=== PATIENT | male | born 1980 | race Two or more races ===

== ENCOUNTER 2019-12-31 12:58 | Inpatient (IN) | payer OTHER ==
[~2019-12-31] VITALS: Ht 167.6 cm; Wt 99.8 kg
[2019-12-31] MEDS ORDERED: Metoclopramide 10mg/2ml Inj IVP ONE (13:00)
[2019-12-31] MEDS ORDERED: DiphenhydrAMINE 50mg/ml Inj IVP ONE (13:00)
[2019-12-31] MEDS ORDERED: LORazepam Inj 2mg/ml 1ml IV ONE ×2 (13:00→14:45)
--- NOTE | 2019-12-31 13:07 | NUR ---
ED Nurse Note: Pt BIBA from work d/t episode of nausea started 15 mins ago. Pt stated he feels nauseous right now, noted pt sweating. Pt denies any past medical history. Pt is AOx4, VSS, on RA. Per technical assoc's report, pt is (-) for orthostatic hypotension. Placed on bed and gown; hooked to telemetry monitor. Co-worker at bedside. Acchucheck done with 139mg/dl.
--- NOTE | 2019-12-31 13:09 | Emergency Room Report ---
History of Present Illness General Chief Complaint: Nausea Source: Patient Present Illness HPI Patient presents with acute onset of dizziness and vomiting. He was at work when this began. He denies any headache or tinnitus. He never had this happen before. He denies chest pain, palpitations. No recent travel. No recent medications. No family history of strokes or aneurysms. No history of diabetes. No fevers, chills, sore throat, chest pain, palpitations, diarrhea, dysuria, abdominal pain, shortness of breath, joint pain, rashes, depression. 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 Reviewed Nursing Documentation: PMH: Agreed; PSxH: Agreed Nursing Documentation-PMH Past Medical History: No Stated History Review of Systems All Other Systems: negative except mentioned in HPI Physical Exam Vital Signs Date Time Temp Pulse Resp B/P (MAP) Pulse Ox O2 Delivery O2 Flow Rate FiO2 12/31/19 12:53 97.9 70 16 132/83 (99) 98 Room Air Sp02 EP Interpretation: reviewed, normal General Appearance: alert, GCS 15, non-toxic, mild distress - Vomiting and the eyes closed Head: normocephalic, atraumatic Eyes: bilateral eye PERRL, bilateral eye abnormal EOM - Slow to left fast to right ENT: normal pharynx, moist mucus membranes Neck: full range of motion, supple Respiratory: lungs clear, normal breath sounds Cardiovascular #1: regular rate, rhythm, no edema Cardiovascular #2: 2+ radial (R) Gastrointestinal: normal inspection, non tender, no mass, non-distended, decreased bowel sounds Genitourinary: no CVA tenderness Musculoskeletal: back normal, normal range of motion, no calf tenderness Neurologic: alert, motor strength/tone normal, DTRs symmetric, oriented x3, sensory intact, speech normal, nystagmus Psychiatric: anxious Skin: no rash, warm/dry Medical Decision Making Diagnostic Impression: Primary Impression: Intractable vomiting Qualified Codes: R11.2 - Nausea with vomiting, unspecified Additional Impressions: Labyrinthitis Qualified Codes: H83.02 - Labyrinthitis, left ear Hypokalemia Vertigo ER Course Patient presents with dizziness and vomiting. Differential includes labyrinthitis, vestibular neuritis, Mnire's disease, food poisoning amongst others. The fact that the patient has significant symptoms with nystagmus suggest of peripheral origin as opposed to central. CT the head is not indicated at this time. Patient evaluated with EKG and labs. Treated with Reglan, Benadryl and Ativan. EKG no injury. Labs with normal white count. Sed rate normal. Potassium slightly low. Patient still nauseated. Zofran, solu-medrol given. Patient still vomiting. Observation requested. CT head ordered. Ativan repeated. CT without focal findings. Some improvement but still nauseated and unable to stand on her own. Laboratory Tests Test 12/31/19 13:06 12/31/19 14:50 White Blood Count 9.2 K/UL (4.8-10.8) Red Blood Count 5.72 M/UL (4.70-6.10) Hemoglobin 16.6 G/DL (14.2-18.0) Hematocrit 48.2 % (42.0-52.0) Mean Corpuscular Volume 84 FL (80-99) Mean Corpuscular Hemoglobin 29.0 PG (27.0-31.0) Mean Corpuscular Hemoglobin Concent 34.4 G/DL (32.0-36.0) Red Cell Distribution Width 11.4 % (11.6-14.8) L Platelet Count 195 K/UL (150-450) Mean Platelet Volume 10.7 FL (6.5-10.1) H Neutrophils (%) (Auto) 49.6 % (45.0-75.0) Lymphocytes (%) (Auto) 38.8 % (20.0-45.0) Monocytes (%) (Auto) 8.5 % (1.0-10.0) Eosinophils (%) (Auto) 1.6 % (0.0-3.0) Basophils (%) (Auto) 1.4 % (0.0-2.0) Erythrocyte Sedimentation Rate 1 MM/HR (0-15) Prothrombin Time 11.0 SEC (9.30-11.50) Prothrombin Time INR 1.0 (0.9-1.1) Activated Partial Thromboplast Time 23 SEC (23-33) Sodium Level 142 MMOL/L (136-145) Potassium Level 3.4 MMOL/L (3.5-5.1) L Chloride Level 104 MMOL/L (98-107) Carbon Dioxide Level 22 MMOL/L (21-32) Anion Gap 16 mmol/L (5-15) H Blood Urea Nitrogen 13 mg/dL (7-18) Creatinine 0.9 MG/DL (0.55-1.30) Estimate Glomerular Filtration Rate > 60 mL/min (>60) Glucose Level 138 MG/DL (74-106) H Calcium Level 9.2 MG/DL (8.5-10.1) Total Bilirubin 0.4 MG/DL (0.2-1.0) Aspartate Amino Transferase (AST) 22 U/L (15-37) Alanine Aminotransferase (ALT) 37 U/L (12-78) Alkaline Phosphatase 88 U/L (46-116) Troponin I 0.000 ng/mL (0.000-0.056) Total Protein 7.6 G/DL (6.4-8.2) Albumin 4.1 G/DL (3.4-5.0) Globulin 3.5 g/dL Albumin/Globulin Ratio 1.2 (1.0-2.7) Lipase 122 U/L (73-393) Urine Color Yellow Urine Appearance Clear Urine pH 6 (4.5-8.0) Urine Specific [place] 1.020 (1.005-1.035) Urine Protein Negative (NEGATIVE) Urine Glucose (UA) Negative (NEGATIVE) Urine Ketones Negative (NEGATIVE) Urine Blood Negative (NEGATIVE) Urine Nitrite Negative (NEGATIVE) Urine Bilirubin Negative (NEGATIVE) Urine Urobilinogen Normal MG/DL (0.0-1.0) Urine Leukocyte Esterase Negative (NEGATIVE) Urine Opiates Screen Negative (NEGATIVE) Urine Barbiturates Screen Negative (NEGATIVE) Phencyclidine (PCP) Screen Negative (NEGATIVE) Urine Amphetamines Screen Negative (NEGATIVE) Urine Benzodiazepines Screen Negative (NEGATIVE) Urine Cocaine Screen Negative (NEGATIVE) Urine Marijuana (THC) Screen Negative (NEGATIVE) EKG Diagnostic Results Rate: normal Rhythm: NSR ST Segments: no acute changes - Sinus arrhythmia Rhythm Strip Diag. Results EP Interpretation: yes Rhythm: NSR, no PVC's, no ectopy CT/MRI/US Diagnostic Results CT/MRI/US Diagnostic Results : Imaging Test Ordered: Head Impression No bleeds or mass-effect -no mastoid fluid Last Vital Signs Date Time Temp Pulse Resp B/P (MAP) Pulse Ox O2 Delivery O2 Flow Rate FiO2 12/31/19 21:00 82 18 96 Room Air 21 12/31/19 17:00 98.1 132/82 (99) Status: improved Disposition: PLACE IN OBSERVATION Condition: Serious Michele Apodaca MD Dec 31, 2019 13:09
[2019-12-31 13:10] VITALS: BP_SYST 114; BP_SYST 132; BP_DIAS 83; BP_DIAS 89
[2019-12-31 13:30] LABS: BASOPHILS % (AUTO) 1.4 % (0.0-2.0); EOSINOPHILS % (AUTO) 1.6 % (0.0-3.0); HEMATOCRIT 48.2 % (42.0-52.0); HEMOGLOBIN 16.6 G/DL (14.2-18.0); LYMPHOCYTES % (AUTO) 38.8 % (20.0-45.0); MEAN CORPUSCULAR VOLUME 84 FL (80-99); MONOCYTES % (AUTO) 8.5 % (1.0-10.0); NEUTROPHILS % (AUTO) 49.6 % (45.0-75.0); PLATELET COUNT 195 K/UL (150-450); RED BLOOD COUNT 5.72 M/UL (4.70-6.10); RED CELL DISTRIBUTION WIDTH 11.4 % (11.6-14.8); WHITE BLOOD COUNT 9.2 K/UL (4.8-10.8)
[2019-12-31 13:39] LABS: ANION GAP 16 mmol/L (5-15); BLOOD UREA NITROGEN 13 mg/dL (7-18); CALCIUM 9.2 MG/DL (8.5-10.1); CARBON DIOXIDE 22 MMOL/L (21-32); CHLORIDE 104 MMOL/L (98-107); CREATININE 0.9 MG/DL (0.55-1.30); POTASSIUM 3.4 MMOL/L (3.5-5.1); SODIUM 142 MMOL/L (136-145)
[2019-12-31 13:43] LABS: ALANINE AMINOTRANSFERASE 37 U/L (12-78); ALBUMIN 4.1 G/DL (3.4-5.0); ALBUMIN/GLOBULIN RATIO 1.2 (1.0-2.7); ALKALINE PHOSPHATASE 88 U/L (46-116); ASPARTATE AMINO TRANSFERASE 22 U/L (15-37); BILIRUBIN,TOTAL 0.4 MG/DL (0.2-1.0)
[2019-12-31] MEDS ORDERED: Solu-MEDROL 125mg Inj IVP ONE (14:15)
[2019-12-31 15:15] VITALS: BP 135/74
[2019-12-31 15:42] LABS: APPEARANCE,URINE CLEAR; BILIRUBIN, URINE NEGATIVE (NEGATIVE); GLUCOSE, URINE (UA) NEGATIVE (NEGATIVE); KETONES,URINE NEGATIVE (NEGATIVE); LEUKOCYTE ESTERASE ,URINE NEGATIVE (NEGATIVE); NITRITE,URINE NEGATIVE (NEGATIVE); PH,URINE 6 (4.5-8.0); PROTEIN,URINE NEGATIVE (NEGATIVE); UROBILINOGEN,URINE NORMAL MG/DL (0.0-1.0)
[2019-12-31 15:43] LABS: COLOR,URINE YELLOW
--- NOTE | 2019-12-31 16:00 | Diagnostic Imaging Report ---
Indication: Headache Technique: Contiguous 5 mm thick transaxial imaging of the head obtained in a Siemens Sensation [address] scanner. Soft tissue and bone windows generated. Automatic Exposure Control was utilized. Total Dose length Product (DLP): 1072.2mGycm CT Dose Index Volume (CTDIvol): 53.4 mGy Comparison: none Findings: The size and configuration of the cortical sulci, basal cisterns, and ventricles are within normal limits for age. There is no mass effect, midline shift, or edema identified. There is no evidence of acute hemorrhage or abnormal intra-axial or extra-axial fluid collections. The bones and soft tissues are unremarkable. Impression: No mass effect, edema or acute bleed. The CT scanner at [facility] is accredited by the [place] [employer] and the scans are performed using dose optimization techniques as appropriate to a performed exam including Automatic Exposure control.
--- NOTE | 2019-12-31 16:15 | NUR ---
TRANSFER TO FLOOR: Patient transferred to [facility] as ordered, per Dr. Vera. Report given to Sehlton BARRON. Belongings and medications given to receiving nurse. Family and or S/O informed of transfer.
--- NOTE | 2019-12-31 16:35 | NUR ---
NURSE NOTES: Anu BARRON brought patient by dewayne in stable condition. Alert and oriented x4. No complain of pain or distress. No N/V at this time. IV dressing intact and dry. Belonging checked. Bed lowest position. Call light within reach. Will continue to monitor.
[2019-12-31 17:00] VITALS: BP 132/82
[2019-12-31] MEDS ORDERED: Albuterol/Ipratropium 3ml neb HHN PRN (17:08)
[2019-12-31] MEDS ORDERED: Morphine Sulfate 2mg/ml Inj(IV/IM USE ONLY) IVP PRN (17:09)
[2019-12-31] MEDS ORDERED: DiphenhydrAMINE 25mg Tab ORAL PRN (17:09)
[2019-12-31] MEDS ORDERED: Metoclopramide 10mg/2ml Inj IVP PRN (17:10)
--- NOTE | 2019-12-31 17:40 | History and Physical ---
History of Present Illness General Date patient seen: Dec 31, 2019 Time patient seen: 17:00 Reason for Hospitalization: Nausea Present Illness HPI 39 year old male with no PMHx, presenting with acute onset of vertigo, nausea, vomiting that started at ~10AM this morning while at work meeting. Was in normal state of health leading up to it. Denies any abdominal pain, bowel habit changes, chest pain, SOB, fever, chills. Has vomited twice since, and multiple bouts of heaving. Was not able to eat anything, but now feeling a little hungry. Allergies: Coded Allergies: PENICILLINS (Verified Allergy, Unknown, 12/31/19) Patient History Healthcare decision maker N Resuscitation status Full Code Advanced Directive on File Review of Systems Constitutional: Denies: no symptoms, see HPI, chills, sweats, fever, malaise, weakness, other Eye: Denies: no symptoms, see HPI, eye pain, blurred vision, tearing, double vision, nose pain, nose congestion, acuity changes, discharge, other ENT: Denies: no symptoms, see HPI, ear pain, ear discharge, nose pain, nose congestion, throat pain, throat swelling, mouth pain, hearing loss, nasal discharge, other Respiratory: Denies: no symptoms, see HPI, cough, orthopnea, shortness of breath, stridor, wheezing, CHOI, sputum, other Cardiovascular: Denies: no symptoms, see HPI, chest pain, edema, palpitations, syncope, PND, other Gastrointestinal: Reports: nausea, vomiting Genitourinary: Denies: no symptoms, see HPI, discharge, dysuria, frequency, hematuria, pain, retention, incontinence, urgency, vag bleed/dc, other Musculoskeletal: Denies: no symptoms, see HPI, back pain, gout, joint pain, joint swelling, muscle pain, muscle stiffness, other Skin: Denies: no symptoms, see HPI, rash, change in color, change in hair/nails , dryness, lesions, other Psychiatric: Denies: no symptoms, see HPI, prior hx, anxiety, depressed feelings, emotional problems, SI, HI, hallucinations, other Neurological: Reports: no symptoms, see HPI, headache, numbness, paresthesia, seizure, tingling, tremors, focal weakness, syncope, dizziness, other Endocrine: Denies: no symptoms, see HPI, excessive sweating, flushing, intolerance to temperature, increased thirst, increased urine, unexplained weight loss, other Hematologic/Lymphatic: Denies: no symptoms, see HPI, anemia, blood clots, easy bleeding, easy bruising, swollen glands, diathesis, other All Other Systems: negative except mentioned in HPI Physical Exam General Appearance: no apparent distress, alert HEENT: normocephalic, atraumatic Neck: supple Respiratory/Chest: lungs clear, normal breath sounds, no respiratory distress Cardiovascular/Chest: normal rate, regular rhythm Abdomen: non tender, soft Neurologic: abnormal gait, alert, oriented x 3 Last 24 Hour Vital Signs Date Time Temp Pulse Resp B/P (MAP) Pulse Ox O2 Delivery O2 Flow Rate FiO2 12/31/19 17:00 Room Air 12/31/19 15:15 97.9 65 17 135/74 97 Room Air 12/31/19 13:10 97.9 65 18 114/89 96 Room Air 12/31/19 12:53 97.9 70 16 132/83 (99) 98 Room Air Laboratory Tests Test 12/31/19 13:06 12/31/19 14:50 White Blood Count 9.2 K/UL (4.8-10.8) Red Blood Count 5.72 M/UL (4.70-6.10) Hemoglobin 16.6 G/DL (14.2-18.0) Hematocrit 48.2 % (42.0-52.0) Mean Corpuscular Volume 84 FL (80-99) Mean Corpuscular Hemoglobin 29.0 PG (27.0-31.0) Mean Corpuscular Hemoglobin Concent 34.4 G/DL (32.0-36.0) Red Cell Distribution Width 11.4 % (11.6-14.8) L Platelet Count 195 K/UL (150-450) Mean Platelet Volume 10.7 FL (6.5-10.1) H Neutrophils (%) (Auto) 49.6 % (45.0-75.0) Lymphocytes (%) (Auto) 38.8 % (20.0-45.0) Monocytes (%) (Auto) 8.5 % (1.0-10.0) Eosinophils (%) (Auto) 1.6 % (0.0-3.0) Basophils (%) (Auto) 1.4 % (0.0-2.0) Erythrocyte Sedimentation Rate 1 MM/HR (0-15) Prothrombin Time 11.0 SEC (9.30-11.50) Prothromb Time International Ratio 1.0 (0.9-1.1) Activated Partial Thromboplast Time 23 SEC (23-33) Sodium Level 142 MMOL/L (136-145) Potassium Level 3.4 MMOL/L (3.5-5.1) L Chloride Level 104 MMOL/L (98-107) Carbon Dioxide Level 22 MMOL/L (21-32) Anion Gap 16 mmol/L (5-15) H Blood Urea Nitrogen 13 mg/dL (7-18) Creatinine 0.9 MG/DL (0.55-1.30) Estimat Glomerular Filtration Rate > 60 mL/min (>60) Glucose Level 138 MG/DL (74-106) H Calcium Level 9.2 MG/DL (8.5-10.1) Total Bilirubin 0.4 MG/DL (0.2-1.0) Aspartate Amino Transf (AST/SGOT) 22 U/L (15-37) Alanine Aminotransferase (ALT/SGPT) 37 U/L (12-78) Alkaline Phosphatase 88 U/L (46-116) Troponin I 0.000 ng/mL (0.000-0.056) Total Protein 7.6 G/DL (6.4-8.2) Albumin 4.1 G/DL (3.4-5.0) Globulin 3.5 g/dL Albumin/Globulin Ratio 1.2 (1.0-2.7) Lipase 122 U/L (73-393) Urine Color Yellow Urine Appearance Clear Urine pH 6 (4.5-8.0) Urine Specific [place] 1.020 (1.005-1.035) Urine Protein Negative (NEGATIVE) Urine Glucose (UA) Negative (NEGATIVE) Urine Ketones Negative (NEGATIVE) Urine Blood Negative (NEGATIVE) Urine Nitrite Negative (NEGATIVE) Urine Bilirubin Negative (NEGATIVE) Urine Urobilinogen Normal MG/DL (0.0-1.0) Urine Leukocyte Esterase Negative (NEGATIVE) Urine Opiates Screen Negative (NEGATIVE) Urine Barbiturates Screen Negative (NEGATIVE) Phencyclidine (PCP) Screen Negative (NEGATIVE) Urine Amphetamines Screen Negative (NEGATIVE) Urine Benzodiazepines Screen Negative (NEGATIVE) Urine Cocaine Screen Negative (NEGATIVE) Urine Marijuana (THC) Screen Negative (NEGATIVE) Height (Feet): 5 Height (Inches): 6.00 Weight (Pounds): 220 Medications Current Medications Medications (Trade) Dose Ordered Sig/Jimbo Route PRN Reason Start Time Stop Time Status Last Admin Dose Admin Albuterol/ Ipratropium (Albuterol/ Ipratropium) 3 ml Q4H PRN HHN Shortness of Breath 12/31/19 17:08 01/05/20 17:07 Bisacodyl (Dulcolax) 10 mg HSPRN PRN RECTAL Constipation 12/31/19 21:00 01/30/20 20:59 Dextrose (Dextrose 50%) 25 ml Q30M PRN IV Hypoglycemia 12/31/19 17:08 01/30/20 17:07 Dextrose (Dextrose 50%) 50 ml Q30M PRN IV Hypoglycemia 12/31/19 17:08 01/30/20 17:07 Dextrose/ Electrolytes 1,000 ml @ 75 mls/hr [id number] IV 12/31/19 18:30 01/30/20 18:29 Diphenhydramine HCl (Benadryl) 25 mg Q6H PRN ORAL Itching/Pruritis 12/31/19 17:09 01/30/20 17:08 Docusate Sodium (Colace) 100 mg EVERY 12 HOURS ORAL 12/31/19 21:00 01/30/20 20:59 Metoclopramide HCl (Reglan) 10 mg Q6H PRN IVP Nausea & Vomiting 12/31/19 17:10 01/30/20 17:09 Morphine Sulfate (Morphine Sulfate) 2 mg Q4H PRN IVP Severe Pain (Pain Scale 7-10) 12/31/19 17:09 01/07/20 17:08 Ondansetron HCl (Zofran) 4 mg Q6H PRN IVP Nausea & Vomiting 12/31/19 17:08 01/30/20 17:07 Potassium Chloride (K-Dur) 20 meq ONCE ORAL 12/31/19 18:30 12/31/19 19:30 Assessment/Plan Problem List: (1) Labyrinthitis ICD Codes: H83.09 - Labyrinthitis, unspecified ear SNOMED: 18682610 (2) Intractable vomiting ICD Codes: R11.10 - Vomiting, unspecified SNOMED: 435578826 (3) Vertigo ICD Codes: R42 - Dizziness and giddiness SNOMED: 413619008 Status: stable Assessment/Plan: #Vertigo #Nausea #Vomiting -Admit to obs -Neurology consult placed. -GI consult placed. -symptomatic treatmetn with zofran, reglan. -Start mIVF at 75 mL/hr. -Regular diet as tolerated. -PT consult for mobility, possible BPPV. #Hypokalemia #Anion gap metabolic acidosis Likely due to vomiting. -replete K -continue IVF as above. Extra 36 minutes spent on chart review of pertinent patient information including imaging, labs, meds, prior physician/application security consultant documentation. Time of note doesn't reflect the time of encounter. Lashonda Mathis M.D. Dec 31, 2019 17:40
[2019-12-31] MEDS: D5W w/KCl 20mEq 1,000 ML IV SCH (18:32)
--- NOTE | 2019-12-31 19:30 | NUR ---
HAND-OFF: Report given to Val BARRON. Patient in stable condition.
--- NOTE | 2019-12-31 19:35 | NUR ---
NURSE NOTES: Received report from BEATRICE Peoples. No distress at this time. Bed in low position, locked, side rails up x2, call light within reach, encouraged to call as needed for assistance. Will continue to monitor.
[2019-12-31 20:00] VITALS: BP_SYST 114; BP_SYST 125; BP_DIAS 67; BP_DIAS 79
[2019-12-31] MEDS: Docusate 100mg cap ORAL SCH (20:50)
--- NOTE | 2019-12-31 21:58 | NUR ---
NURSE NOTES: Patient sleeping. No complaints at this time
[2020-01-01] VITALS: BP 138/90
--- NOTE | 2020-01-01 00:02 | NUR ---
NURSE NOTES: Patient attempted to get up to use bathroom with assistance but started dry heaving and stayed in bed. Given urinal. Placed BSC next to bed for later use if need be. Given Reglan IVP for nausea and vomiting. Will continue to monitor.
[2020-01-01] MEDS: D5W w/KCl 20mEq 1,000 ML IV SCH ×2 (01:00→08:49)
--- NOTE | 2020-01-01 01:30 | NUR ---
NURSE NOTES: Patient asleep, no distress noted.
[2020-01-01 04:00] VITALS: BP 139/89
--- NOTE | 2020-01-01 04:19 | NUR ---
NURSE NOTES: States no vomiting in the last few hours, still feeling nausea. Patient denies any pain, continues to feel dizziness, "like room is spinning" whenever he opens his eyes. Given Zofran IVP. Will continue to monitor.
--- NOTE | 2020-01-01 07:25 | NUR ---
HAND-OFF: Report given to BEATRICE Peoples and BEATRICE Villatoro. Rounds done.
--- NOTE | 2020-01-01 07:30 | NUR ---
NURSE NOTES: Patient lying in bed awake. No complain of pain or distress at this time. Skin intact and dry. IV dressing intact and dry. Bed lowest position. Call light within reach. Will continue to monitor.
[2020-01-01 08:11] VITALS: BP 116/74
[2020-01-01 08:44] LABS: ALANINE AMINOTRANSFERASE 39 U/L (12-78); ALBUMIN 3.7 G/DL (3.4-5.0); ALBUMIN/GLOBULIN RATIO 1.1 (1.0-2.7); ALKALINE PHOSPHATASE 80 U/L (46-116); ANION GAP 11 mmol/L (5-15); ASPARTATE AMINO TRANSFERASE 17 U/L (15-37); BILIRUBIN,TOTAL 0.4 MG/DL (0.2-1.0); BLOOD UREA NITROGEN 9 mg/dL (7-18); CALCIUM 9.2 MG/DL (8.5-10.1); CARBON DIOXIDE 25 MMOL/L (21-32); CHLORIDE 105 MMOL/L (98-107); CREATININE 0.8 MG/DL (0.55-1.30); POTASSIUM 3.8 MMOL/L (3.5-5.1); SODIUM 141 MMOL/L (136-145)
--- NOTE | 2020-01-01 08:45 | NUR ---
PT EVALUATION NOTE Patient seen for initial evaluation. Patient presents with c/o nausea and dizziness which impairs patient's ability to perform mobility tasks. Patient able to transfer with SBA/CGA, slightly unsteady upon standing however no loss of balance. Patient tends to keep his eyes closed because his dizziness increases with his eyes open. Patient declined to ambulate due to dizziness. Patient will benefit from skilled inpatient PT intervention to address balance and safety for increased level of independence with functional mobility. Anticipate discharge home once medically cleared by MD. No DME needs anticipated at this time. Addendum: 01/01/20 at 1232 by PARAMJIT CHANCE PT Amended: Links added.
[2020-01-01] MEDS: Docusate 100mg cap ORAL SCH ×2 (08:49→20:39)
[2020-01-01] MEDS ORDERED: Meclizine 25mg tab ORAL SCH (09:00)
--- NOTE | 2020-01-01 11:42 | GI Initial Consult Note ---
History of Present Illness General Date patient seen: Jan 01, 2020 Time patient seen: 11:38 Reason for Hospitalization: Nausea Referring physician: COBY Reason for Consultation: NV/VERTIGO Present Illness HPI Patient presents with acute onset of dizziness and vomiting. He was at work when this began. He denies any headache or tinnitus. He never had this happen before. He denies chest pain, palpitations. No recent travel. No recent medications. No family history of strokes or aneurysms. No history of diabetes. No fevers, chills, sore throat, chest pain, palpitations, diarrhea, dysuria, abdominal pain, shortness of breath, joint pain, rashes, depression. GI consulted for reported nausea and vertigo. Patient seen, awake alert oriented x4 no apparent distress. According to the patient, he has no prior medical history. Patient stated he was in a meeting prior to the initial onset of his vertigo. He described his vertigo as being similar to being seasick. The patient had an episode of emesis but denied any hematic emesis or coffee grounds. The patient has no history of endoscopic or colonoscopy. 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 Reviewed Nursing Documentation: PMH: Agreed; PSxH: Agreed Nursing Documentation-PM Past Medical History: No Stated History Social History: Denies: smoking, alcohol use, drug use, other Review of Systems All Other Systems: negative except mentioned in HPI Physical Exam Vital Signs Date Time Temp Pulse Resp B/P (MAP) Pulse Ox O2 Delivery O2 Flow Rate FiO2 12/31/19 12:53 97.9 70 16 132/83 (99) 98 Room Air 12/31/19 21:00 21 Sp02 EP Interpretation: reviewed, normal Labs Laboratory Tests Test 12/31/19 13:06 12/31/19 14:50 01/01/20 07:25 White Blood Count 9.2 K/UL (4.8-10.8) Red Blood Count 5.72 M/UL (4.70-6.10) Hemoglobin 16.6 G/DL (14.2-18.0) Hematocrit 48.2 % (42.0-52.0) Mean Corpuscular Volume 84 FL (80-99) Mean Corpuscular Hemoglobin 29.0 PG (27.0-31.0) Mean Corpuscular Hemoglobin Concent 34.4 G/DL (32.0-36.0) Red Cell Distribution Width 11.4 % (11.6-14.8) L Platelet Count 195 K/UL (150-450) Mean Platelet Volume 10.7 FL (6.5-10.1) H Neutrophils (%) (Auto) 49.6 % (45.0-75.0) Lymphocytes (%) (Auto) 38.8 % (20.0-45.0) Monocytes (%) (Auto) 8.5 % (1.0-10.0) Eosinophils (%) (Auto) 1.6 % (0.0-3.0) Basophils (%) (Auto) 1.4 % (0.0-2.0) Erythrocyte Sedimentation Rate 1 MM/HR (0-15) Prothrombin Time 11.0 SEC (9.30-11.50) Prothromb Time International Ratio 1.0 (0.9-1.1) Activated Partial Thromboplast Time 23 SEC (23-33) Sodium Level 142 MMOL/L (136-145) 141 MMOL/L (136-145) Potassium Level 3.4 MMOL/L (3.5-5.1) L 3.8 MMOL/L (3.5-5.1) Chloride Level 104 MMOL/L (98-107) 105 MMOL/L (98-107) Carbon Dioxide Level 22 MMOL/L (21-32) 25 MMOL/L (21-32) Anion Gap 16 mmol/L (5-15) H 11 mmol/L (5-15) Blood Urea Nitrogen 13 mg/dL (7-18) 9 mg/dL (7-18) Creatinine 0.9 MG/DL (0.55-1.30) 0.8 MG/DL (0.55-1.30) Estimat Glomerular Filtration Rate > 60 mL/min (>60) > 60 mL/min (>60) Glucose Level 138 MG/DL (74-106) H 111 MG/DL (74-106) H Calcium Level 9.2 MG/DL (8.5-10.1) 9.2 MG/DL (8.5-10.1) Total Bilirubin 0.4 MG/DL (0.2-1.0) 0.4 MG/DL (0.2-1.0) Aspartate Amino Transf (AST/SGOT) 22 U/L (15-37) 17 U/L (15-37) Alanine Aminotransferase (ALT/SGPT) 37 U/L (12-78) 39 U/L (12-78) Alkaline Phosphatase 88 U/L (46-116) 80 U/L (46-116) Troponin I 0.000 ng/mL (0.000-0.056) Total Protein 7.6 G/DL (6.4-8.2) 7.1 G/DL (6.4-8.2) Albumin 4.1 G/DL (3.4-5.0) 3.7 G/DL (3.4-5.0) Globulin 3.5 g/dL 3.4 g/dL Albumin/Globulin Ratio 1.2 (1.0-2.7) 1.1 (1.0-2.7) Lipase 122 U/L (73-393) Urine Color Yellow Urine Appearance Clear Urine pH 6 (4.5-8.0) Urine Specific Dewitt 1.020 (1.005-1.035) Urine Protein Negative (NEGATIVE) Urine Glucose (UA) Negative (NEGATIVE) Urine Ketones Negative (NEGATIVE) Urine Blood Negative (NEGATIVE) Urine Nitrite Negative (NEGATIVE) Urine Bilirubin Negative (NEGATIVE) Urine Urobilinogen Normal MG/DL (0.0-1.0) Urine Leukocyte Esterase Negative (NEGATIVE) Urine Opiates Screen Negative (NEGATIVE) Urine Barbiturates Screen Negative (NEGATIVE) Phencyclidine (PCP) Screen Negative (NEGATIVE) Urine Amphetamines Screen Negative (NEGATIVE) Urine Benzodiazepines Screen Negative (NEGATIVE) Urine Cocaine Screen Negative (NEGATIVE) Urine Marijuana (THC) Screen Negative (NEGATIVE) General Appearance: well appearing, no apparent distress, alert Head: normocephalic EENT: PERRL/EOMI, normal ENT inspection Neck: supple Respiratory: normal breath sounds, no respiratory distress Cardiovascular: normal rate Gastrointestinal: normal inspection, non tender, soft, normal bowel sounds, non -distended Rectal: deferred Genitourinary: deferred Musculoskeletal: normal inspection, back normal Neurologic: alert, oriented x3, responsive, normal inspection Psychiatric: normal inspection, judgement/insight normal, memory normal Skin: normal inspection, normal color, no rash, warm/dry, palpation normal, well hydrated Lymphatic: normal inspection, no adenopathy Current Medications Current Medications Medications (Trade) Dose Ordered Sig/Jimbo Route PRN Reason Start Time Stop Time Status Last Admin Dose Admin Albuterol/ Ipratropium (Albuterol/ Ipratropium) 3 ml Q4H PRN HHN Shortness of Breath 12/31/19 17:08 01/05/20 17:07 Bisacodyl (Dulcolax) 10 mg HSPRN PRN RECTAL Constipation 12/31/19 21:00 01/30/20 20:59 Dextrose (Dextrose 50%) 25 ml Q30M PRN IV Hypoglycemia 12/31/19 17:08 01/30/20 17:07 Dextrose (Dextrose 50%) 50 ml Q30M PRN IV Hypoglycemia 12/31/19 17:08 01/30/20 17:07 Dextrose/ Electrolytes 1,000 ml @ 75 mls/hr [id number] IV 12/31/19 18:30 01/30/20 18:29 01/01/20 08:49 Diphenhydramine HCl (Benadryl) 25 mg Q6H PRN ORAL Itching/Pruritis 12/31/19 17:09 01/30/20 17:08 Docusate Sodium (Colace) 100 mg EVERY 12 HOURS ORAL 12/31/19 21:00 01/30/20 20:59 Meclizine HCl (Antivert) 25 mg Q6H PRN ORAL for dizziness 01/01/20 12:00 01/31/20 11:59 Metoclopramide HCl (Reglan) 10 mg Q6H PRN IVP Nausea & Vomiting 12/31/19 17:10 01/30/20 17:09 12/31/19 23:50 Morphine Sulfate (Morphine Sulfate) 2 mg Q4H PRN IVP Severe Pain (Pain Scale 7-10) 12/31/19 17:09 01/07/20 17:08 Ondansetron HCl (Zofran) 4 mg Q6H PRN IVP Nausea & Vomiting 12/31/19 17:08 01/30/20 17:07 01/01/20 04:12 GI: Plan Problems: (1) Intractable vomiting (2) Vertigo (3) Hypokalemia Plan No plans for any GI procedures at this time Symptomatic treatment Zofran PRN for any nausea We will DC Reglan, will add promethazine given possibility vestibular etiology > > consider scopolamine patch for persistent NV. Continue meclizine as ordered Advance diet as tolerated PPI We will follow on a daily basis with any additional recommendations Discussed with Dr. Andersen. Thank you for this patient referral, we will follow. The patient was seen and examined at bedside and all new and available data was reviewed in the patients chart. I agree with the above findings, impression and plan. (Patient seen earlier today. Signature stamp does not reflect patient encounter time.). - MD Esther [facility]asSan [facility] KRYSTAL Jan 01, 2020 11:42
[2020-01-01 11:50] VITALS: BP 139/97
[2020-01-01] MEDS ORDERED: Promethazine/DM 6.25mg/5ml ORAL PRN (12:00)
--- NOTE | 2020-01-01 13:52 | General Progress Note ---
Assessment/Plan Problem List: (1) Labyrinthitis ICD Codes: H83.09 - Labyrinthitis, unspecified ear SNOMED: 52427284 Qualifiers: Qualified Codes: H83.02 - Labyrinthitis, left ear (2) Intractable vomiting ICD Codes: R11.10 - Vomiting, unspecified SNOMED: 799032846 Qualifiers: Qualified Codes: R11.2 - Nausea with vomiting, unspecified (3) Vertigo ICD Codes: R42 - Dizziness and giddiness SNOMED: 735023233 Status: stable Assessment/Plan: #Vertigo #Nausea #Vomiting -Neurology consult placed. Will see later today. -Continue meclizine. -GI consult placed; no plan for EGD. -symptomatic treatmetn with zofran, promethazine. -mIVF at 75 mL/hr. -Regular diet as tolerated. -PT consult for mobility, possible BPPV. bryan attempted but ddin't help. #Hypokalemia #Anion gap metabolic acidosis Likely due to vomiting. -replete K -continue IVF as above. Time spent on encounter: 38 minutes, >50% on counseling, coordination of care. Time of note doesn't reflect the time of encounter. Subjective Date patient seen: Jan 01, 2020 Time patient seen: 13:30 Constitutional: Denies: no symptoms, chills, diaphoresis, fever, malaise, weakness, other HEENT: Denies: no symptoms, eye pain, blurred vision, tearing, double vision, ear pain, ear discharge, nose pain, nose congestion, throat pain, throat swelling, mouth pain, mouth swelling, other Cardiovascular: Denies: no symptoms, chest pain, edema, irregular heart rate, lightheadedness, palpitations, syncope, other Respiratory: Denies: no symptoms, cough, orthopnea, shortness of breath, SOB with excertion, SOB at rest, sputum, stridor, wheezing, other Gastrointestinal/Abdominal: Denies: no symptoms, abdomen distended, abdominal pain, black stools, tarry stools, blood in stool, constipated, diarrhea, difficulty swallowing, nausea, poor appetite, poor fluid intake, rectal bleeding , vomiting, other Genitourinary: Denies: no symptoms, burning, discharge, frequency, flank pain, hematuria, incontinence, pain, urgency, other Neurologic/Psychiatric: Reports: other - vertigo Endocrine: Denies: no symptoms, excessive sweating, flushing, intolerance to cold, intolerance to heat, increased hunger, increased thirst, increased urine, unexplained weight gain, unexplained weight loss, other Hematologic/Lymphatic: Denies: no symptoms, anemia, easy bleeding, easy bruising, other Allergies: Coded Allergies: PENICILLINS (Verified Allergy, Unknown, 12/31/19) Subjective resting in bed, with eyes closed. walked a few steps with PT earlier, but still feeling vertigo. Objective Last 24 Hour Vital Signs Date Time Temp Pulse Resp B/P (MAP) Pulse Ox O2 Delivery O2 Flow Rate FiO2 01/01/20 11:50 97.3 82 18 139/97 (111) 96 01/01/20 09:00 Room Air 01/01/20 08:11 97.4 86 17 116/74 (88) 96 01/01/20 07:32 79 20 96 Room Air 21 01/01/20 04:00 97.5 92 18 139/89 (106) 97 01/01/20 00:00 98.0 90 20 138/90 (106) 97 12/31/19 21:00 Room Air 12/31/19 21:00 82 18 96 Room Air 21 12/31/19 20:00 98.5 88 18 125/79 (94) 96 12/31/19 17:00 98.1 88 18 132/82 (99) 96 12/31/19 17:00 Room Air 12/31/19 16:15 97.9 65 17 135/74 97 Room Air 12/31/19 15:15 97.9 65 17 135/74 97 Room Air Intake and Output 12/31/19 01/01/20 19:00 07:00 Intake Total 100 ml 950 ml Output Total 1600 ml Balance 100 ml -650 ml Intake Oral 100 ml 50 ml IV Total 900 ml Output Urine Total 1550 ml Emesis 50 ml # Voids 4 Laboratory Tests 12/31/19 14:50: Urine Color Yellow, Urine Appearance Clear, Urine pH 6, Urine Specific Edgar 1.020, Urine Protein Negative, Urine Glucose (UA) Negative, Urine Ketones Negative, Urine Blood Negative, Urine Nitrite Negative, Urine Bilirubin Negative , Urine Urobilinogen Normal, Urine Leukocyte Esterase Negative, Urine Opiates Screen Negative, Urine Barbiturates Screen Negative, Phencyclidine (PCP) Screen Negative, Urine Amphetamines Screen Negative, Urine Benzodiazepines Screen Negative, Urine Cocaine Screen Negative, Urine Marijuana (THC) Screen Negative 01/01/20 07:25: Sodium Level 141, Potassium Level 3.8, Chloride Level 105, Carbon Dioxide Level 25, Anion Gap 11, Blood Urea Nitrogen 9, Creatinine 0.8, Estimat Glomerular Filtration Rate > 60, Glucose Level 111H, Calcium Level 9.2, Total Bilirubin 0.4 , Aspartate Amino Transf (AST/SGOT) 17, Alanine Aminotransferase (ALT/SGPT) 39, Alkaline Phosphatase 80, Total Protein 7.1, Albumin 3.7, Globulin 3.4, Albumin/ Globulin Ratio 1.1 Height (Feet): 5 Height (Inches): 6.00 Weight (Pounds): 220 General Appearance: no apparent distress, alert Neck: supple Cardiovascular: normal rate, regular rhythm Respiratory/Chest: lungs clear, normal breath sounds Abdomen: non tender, soft Neurologic: alert, responsive Lashonda Mathis M.D. Jan 01, 2020 13:52
--- NOTE | 2020-01-01 14:53 | NUR ---
CASE MANAGEMENT: INITIAL REVIEW 39YR OLD MALE BIBA FROM WORK CC: NAUSEA SI: VERTIGO. INTRACTABLE VOMITING . LABYRINTHITIS 97.8 70 16 132/83 98% ON RA K+ 3.4 BG 138 ANION GAP 16 IS: IV REGLAN X1 IV PEPCID X1 IV NS BOLUS X1 IV BENADRYL X1 IV ATIVAN X1 HEAD CT= No mass effect, edema or acute bleed. : 3 E MED SURG UNIT CASE MANAGEMENT: REVIEW 01/01/20 SI: VERTIGO. INTRACTABLE VOMITING . LABYRINTHITIS 97.3 82 18 139/97 96% ON RA IS: ANTIVERT PO X1 IV D5@75ML/HR IV ZOFRAN Q6HR/PRN : 3 E MED SURG UNIT PLAN: PT EVAL AND TREAT INTERQUAL MET
[2020-01-01 16:05] VITALS: BP 143/85
--- NOTE | 2020-01-01 18:33 | Consultation ---
Consult Note Consult Note NEUROLOGY CONSULTATION: HISTORY: Mr. Nick Gavin is a 39-year-old, right-handed, gentleman, who has a relatively benign past history. He was functioning perfectly well until approximately 1145 hrs. on 12/31/2019 when he was in a meeting and suddenly felt that his eyes were bobbing and his vision was oscillating, he then felt nausea and when he got up to walk he had a sensation of motion from side to side which then became circular. The sensation was quite intense when it started and was associated with nausea and vomiting. He felt quite ill and as a result of that presented to the [facility] emergency room. The sensation continued in an intense fashion for the next few hours. He was given various different medicines for nausea and vertigo and he started to improve towards the end of the day. He was then able to go to sleep and on awakening this morning felt much better. At this point in time he feels relatively comfortable. He only feels a sensation of motion if he turns his head in a sudden manner. He has been able to keep food and water down without any problem. He has noticed no nausea today. He however has not been out of bed yet. He denies any associated change in hearing, weakness on one side or the other, numbness on one side of the other, problems with speech, problems with language, problems with vision other than the jerky vision that he had earlier. He denies any similar symptoms in the past. He also denies any viral syndrome in the near past. PAST HISTORY: Nothing significant. FAMILY HISTORY: Nothing significant with no family history of neurological illness. PERSONAL HISTORY: Home: He lives at home with his mother. 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 Habits: He denies use of tobacco or illicit drugs but does consume 1-2 alcoholic drinks in a week. Present medications: None PHYSICAL EXAMINATION: GENERAL: He is a well-developed, well-nourished, slightly obese, gentleman, in no acute distress. VITAL SIGNS: Pulse: 75/min Blood pressure: 143/85 mmHg Respirations: 18/min Temperature: 98.4 F HEAD: Normocephalic and atraumatic NECK: No neck rigidity was observed. EENT examination: Benign. NEUROLOGICAL EXAMINATION: MENTAL STATUS EXAMINATION: The patient was alert and awake. The patient was oriented to person, place, and time. The patient was able to recall 3/3 words immediately after 1 minute and after 3 minutes. The patient was able to remember Presidents Trump through Ross Senior. His mathematical skills were good. His visuospatial function was preserved. SPEECH: No dysarthria was noted. LANGUAGE: No aphasia was noted. CRANIAL NERVE EXAMINATION: II: The visual jimenez were intact on confrontation testing. III, IV, and : Extraocular movements were full. Pupils were 3 mm in diameter equal, round, regular, and reactive to light. V: Facial sensations were normal, and the temporales, masseters, and pterygoids functioned normally. VII: Facial expressions were normal and no facial asymmetry was noted. VIII: Hearing was normal to finger rubbing bilaterally. He had a few beats of nystagmus when he looks to the left side. This was reproducible. He however did not have any sustained nystagmus. IX: The palate moved symmetrically on phonation. X: No hoarseness of voice was observed. XI: The sternocleidomastoids and trapezii functioned normally. XII: The tongue was in the midline without any fasciculations or atrophy. MOTOR SYSTEM: The tone was normal in all four extremities. Examination of muscle mass revealed no focal wasting. Examination of power revealed G 5/5 power in all muscle groups. SENSORY EXAMINATION: Sensations to pin prick, light touch, position and graphesthesia were normal. REFLEXES: 2+ and bilaterally symmetrical at the biceps, triceps, brachioradialis, knees and ankles. The plantar responses were flexor bilaterally. COORDINATION: [id number]-[id number] and [id number]-gg-wnvs testing were performed well. On Romberg test he swayed but did not fall to one side of the other. STANCE: Normal. GAIT: Normal regular gait. DIAGNOSTIC IMPRESSION: 1. Mr. Nick Gavin is a 39-year-old, right-handed, gentleman, who was functioning perfectly well until approximately 1145 hrs. on 12/31/2019 when he suddenly felt that his eyes were bobbing and his vision was oscillating, he then felt nausea and when he got up to walk he had a sensation of motion from side to side which then became circular. The sensation was quite intense when it started and was associated with nausea and vomiting. 2. The sensation continued in an intense fashion for the next few hours. He started to improve towards the end of the day. He was then able to go to sleep and on awakening this morning felt much better. 3. At this point in time he feels relatively comfortable. He only feels a sensation of motion if he turns his head in a sudden manner. He has been able to keep food and water down without any problem. He has noticed no nausea today. He however has not been out of bed yet. 4. The neurological examination, at this time, is essentially normal, except for a few beats of nystagmus when he looks to the left side that is reproducible. He however does not have any sustained nystagmus. 5. A CT scan of the brain without contrast performed on 12/31/2019 is normal. 6. Laboratory data including a CBC, chemistry panel, urine analysis, are all within normal range except for elevated blood sugars. 7. 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 RECOMMENDATIONS: 1. The patient was given explanation of the above-mentioned findings. 2. He was reassured that the vertigo will continue to improve. 3. He will be started on Valium 2 mg at bedtime for the next few nights to help him with his vertiginous symptoms. 4. Work-up for treatable causes of vertigo will be completed with a TSH, ESR, RPR, hemoglobin A1c, vitamin B12 level, folate level, and vitamin D level. 5. The patient will be observed closely and depending on how he fares over the next day or so further recommendations will be given. Thank you for entrusting me with the care of Mr. Gavin. I shall follow him with you. Sincerely, Mookie Chowdary M.D., M.S.P.H. Neurologist & Clinical Neurophysiologist Mookie Chowdary MD Jan 01, 2020 18:33
--- NOTE | 2020-01-01 19:30 | NUR ---
HAND-OFF: Report given to Laina BARRON. Patient in stable condition.
--- NOTE | 2020-01-01 19:53 | NUR ---
NURSES NOTE: Met pt in bed. A/OX4. No outward s/s of distress noted. Breathing pattern is even and unlabored on RA. Patient denies N/V. R AC IV intact, patent, running intravenous fluids according to eMAR. All due medications will be given. Bed at lowest level, call light within reach. Pt will continue to be monitored.
[2020-01-01 20:00] VITALS: BP 124/74
[2020-01-01] MEDS: Meclizine 25mg tab ORAL PRN (20:39)
[2020-01-02] VITALS: BP 126/74
[2020-01-02 04:00] VITALS: BP 124/84
[2020-01-02] MEDS: Meclizine 25mg tab ORAL PRN (05:50)
[2020-01-02 06:38] LABS: BASOPHILS % (AUTO) 1.2 % (0.0-2.0); EOSINOPHILS % (AUTO) 2.2 % (0.0-3.0); HEMATOCRIT 47.5 % (42.0-52.0); HEMOGLOBIN 16.3 G/DL (14.2-18.0); MEAN CORPUSCULAR VOLUME 86 FL (80-99); MONOCYTES % (AUTO) 8.7 % (1.0-10.0); NEUTROPHILS % (AUTO) 59.9 % (45.0-75.0); PLATELET COUNT 189 K/UL (150-450); RED BLOOD COUNT 5.51 M/UL (4.70-6.10); WHITE BLOOD COUNT 7.8 K/UL (4.8-10.8)
[2020-01-02 07:06] LABS: ANION GAP 8 mmol/L (5-15); BLOOD UREA NITROGEN 11 mg/dL (7-18); CALCIUM 8.8 MG/DL (8.5-10.1); CARBON DIOXIDE 29 MMOL/L (21-32); CHLORIDE 104 MMOL/L (98-107); CREATININE 0.9 MG/DL (0.55-1.30); PHOSPHORUS 3.7 MG/DL (2.5-4.9); POTASSIUM 3.6 MMOL/L (3.5-5.1); SODIUM 141 MMOL/L (136-145)
--- NOTE | 2020-01-02 07:48 | NUR ---
HAND OFF: Report given to BEATRICE Blandon. Patient in stable condition.
[2020-01-02 08:00] VITALS: BP 131/76
--- NOTE | 2020-01-02 08:00 | NUR ---
NURSE NOTES:eating breakfast on initial rounds,in good spirit,no c/o pain,dizziness,ambulatory,iv site patent,plan of care discussed and with understanding.
[2020-01-02] MEDS: Docusate 100mg cap ORAL SCH (08:38)
--- NOTE | 2020-01-02 09:45 | NUR ---
PT DISCHARGE NOTE Patient is independent with all functional mobility without assistive device, denies dizziness and nausea. Skilled inpatient PT intervention no longer warranted, patient discharged from PT. Jamia BARRON notified, patient is cleared to ambulate with nursing supervision. Addendum: 01/02/20 at 1043 by PARAMJIT CHANCE PT Amended: Links added.
[2020-01-02] MEDS: D5W w/KCl 20mEq 1,000 ML IV SCH (10:30)
--- NOTE | 2020-01-02 10:58 | GI Progress Note ---
Assessment/Plan Problems: (1) Labyrinthitis ICD Codes: H83.09 - Labyrinthitis, unspecified ear SNOMED: 64771755 Qualifiers: Qualified Codes: H83.02 - Labyrinthitis, left ear (2) Vertigo ICD Codes: R42 - Dizziness and giddiness SNOMED: 152290711 (3) Intractable vomiting ICD Codes: R11.10 - Vomiting, unspecified SNOMED: [id number] Qualifiers: Qualified Codes: R11.2 - Nausea with vomiting, unspecified Status: stable Status Narrative Discussed with Dr. Andersen. Assessment/Plan okay for DC per GI standpoint No plans for any GI procedures at this time Symptomatic treatment Zofran PRN for any nausea continue promethazine prn given possibility vestibular etiology >> consider scopolamine patch for persistent NV. Continue meclizine as ordered Advance diet as tolerated PPI We will follow on a daily basis with any additional recommendations The patient was seen and examined at bedside and all new and available data was reviewed in the patients chart. I agree with the above findings, impression and plan. (Patient seen earlier today. Signature stamp does not reflect patient encounter time.). - Robby Andersen MD Subjective Subjective vertigo resolved with medication Objective Last 24 Hour Vital Signs Date Time Temp Pulse Resp B/P (MAP) Pulse Ox O2 Delivery O2 Flow Rate FiO2 01/02/20 07:15 Room Air 01/02/20 04:00 97.6 74 17 124/84 (97) 95 01/02/20 00:00 97.9 71 15 126/74 (91) 97 01/01/20 21:00 Room Air 01/01/20 20:25 77 18 97 Room Air 21 01/01/20 20:00 98.0 81 17 124/74 (91) 96 01/01/20 16:05 98.4 75 18 143/85 (104) 96 01/01/20 11:50 97.3 82 18 139/97 (111) 96 Intake and Output 01/01/20 01/02/20 19:00 07:00 Intake Total 300 ml 480 ml Output Total 1000 ml 300 ml Balance -700 ml 180 ml Intake Oral 300 ml 480 ml Output Urine Total 1000 ml 300 ml # Voids 2 Laboratory Tests Test 01/01/20 18:55 01/02/20 05:00 Erythrocyte Sedimentation Rate 3 MM/HR (0-15) Hemoglobin A1c 5.6 % (4.3-6.0) Vitamin B12 Level 577 PG/ML (193-986) Vitamin D 25-Hydroxy Pending 25-Hydroxy Vitamin D2 Pending 25-Hydroxy Vitamin D3 Pending Folate 10.6 NG/ML (8.6-58.9) Thyroid Stimulating Hormone (TSH) 1.371 uiU/mL (0.358-3.740) Rapid Plasma Reagin Non reactive (Non Reactive) White Blood Count 7.8 K/UL (4.8-10.8) Red Blood Count 5.51 M/UL (4.70-6.10) Hemoglobin 16.3 G/DL (14.2-18.0) Hematocrit 47.5 % (42.0-52.0) Mean Corpuscular Volume 86 FL (80-99) Mean Corpuscular Hemoglobin 29.6 PG (27.0-31.0) Mean Corpuscular Hemoglobin Concent 34.4 G/DL (32.0-36.0) Red Cell Distribution Width 12.0 % (11.6-14.8) Platelet Count 189 K/UL (150-450) Mean Platelet Volume 12.5 FL (6.5-10.1) H Neutrophils (%) (Auto) 59.9 % (45.0-75.0) Lymphocytes (%) (Auto) 28.0 % (20.0-45.0) Monocytes (%) (Auto) 8.7 % (1.0-10.0) Eosinophils (%) (Auto) 2.2 % (0.0-3.0) Basophils (%) (Auto) 1.2 % (0.0-2.0) Sodium Level 141 MMOL/L (136-145) Potassium Level 3.6 MMOL/L (3.5-5.1) Chloride Level 104 MMOL/L (98-107) Carbon Dioxide Level 29 MMOL/L (21-32) Anion Gap 8 mmol/L (5-15) Blood Urea Nitrogen 11 mg/dL (7-18) Creatinine 0.9 MG/DL (0.55-1.30) Estimat Glomerular Filtration Rate > 60 mL/min (>60) Glucose Level 98 MG/DL (74-106) Calcium Level 8.8 MG/DL (8.5-10.1) Phosphorus Level 3.7 MG/DL (2.5-4.9) Magnesium Level 2.0 MG/DL (1.8-2.4) Height (Feet): 5 Height (Inches): 6.00 Weight (Pounds): 220 General Appearance: WD/WN, no apparent distress, alert Cardiovascular: normal rate Respiratory/Chest: normal breath sounds, no respiratory distress Abdominal Exam: normal bowel sounds, non tender, soft Extremities: normal range of motion, non-tender Sayra Santana NP Jan 02, 2020 10:58
[2020-01-02 12:00] VITALS: BP 140/88
--- NOTE | 2020-01-02 12:33 | NUR ---
*-* INSURANCE *-* ALL CLINICALS AND REVIEWS HAVE BEEN FAXED TO: [facility] REF# [id number] #[phone] FAX#[phone] REVIEWS/CLINICALS
[2020-01-02] MEDS ORDERED: MECLIZINE HCL25 MG ORAL (13:12)
--- NOTE | 2020-01-02 13:14 | Discharge Summary ---
Discharge Summary Hospital Course Date of Admission Dec 31, 2019 at 14:45 Date of Discharge 01/02/2020 Admitting Diagnosis Vertigo/Intractible Vomiting HPI Nick Gavin is a 39 year old male who was admitted on Dec 31, 2019 at 14:45 for Vertigo,Intractible Vomiting Consultations neurology, GI Hospital Course Patient was given symptomatic treatment of his n/v, vertigo with improvement. CTH was negative. Seen by neurologist and GI, who agreed with symptomatic management. On 01/01, he is being d/c'ed home in great condition. Meclizine prn for vertigo prescribed. Discharge Discharge Vital Signs Last Vital Signs Date Time Temp Pulse Resp B/P (MAP) Pulse Ox O2 Delivery O2 Flow Rate FiO2 01/02/20 12:00 97.9 85 20 140/88 (105) 97 01/02/20 07:15 Room Air 01/01/20 20:25 21 Discharge Disposition Patient was discharged to Lashonda Mathis M.D. Jan 02, 2020 13:14
[2020-01-02 16:00] VITALS: BP 128/83
--- NOTE | 2020-01-02 17:00 | NUR ---
NURSE NOTES:SURYA BARRON.SPOKE WITH (DR. [facility])RE:PENDING RX. STATED PT. DONT NEED RX FOR HOME.D/C INSTRUCTIONS WITH BELONGINGS GIVEN TO PT.AND WITH UNDERSTANDING.HOME BY HIMSELF VIA PRIVATE VEHICLE.PT.STABLE ON DISCHARGE
--- NOTE | 2020-01-03 14:46 | NUR ---
*-* INSURANCE *-* DISCHARGE SUMMARY HAS BEEN FAXED TO: [employer] REF# [id number] #[phone] FAX#[phone] REVIEWS/CLINICALS
== END 2020-01-02 17:45 | disposition home or self-care (01) | DRG 149 ==
LOC: EDBD 12:58 → EMR 13:20 → 3E 14:45 → OBSVTOIN 14:45 → EDBEDREQ 15:04 → INTOOBSV 01-01 19:45 → OBSVTOIN 01-01 19:45
DX: H83.02 Labyrinthitis, left ear (principal); E87.2 Acidosis; E87.6 Hypokalemia; Z88.0 Allergy status to penicillin; R11.2 Nausea with vomiting, unspecified
CPT/HCPCS: 36415; 70450; 80048; 80053; 80307; 81003; 82306; 82607; 82746; 82962; 83036; 83690; 83735; 84100; 84443; 84484; 85025; 85610; 85651; 85730; 86592; 93005; 94664; 96361; 96374; 96375; 99284; J2405; J2765; J7030; J8499